=== PATIENT | female | born 1995 | race American Indian/Alaskan Native ===

== ENCOUNTER 2022-03-16 08:29 | Inpatient (IN) | payer MEDICAID ==
--- NOTE | 2022-03-16 09:24 | History and Physical Report ---
History of Present Illness Date of examination: 03/16/22 Chief complaint: labor contractions History of present illness: EDC Calculations by LMP: 03/14/2022 Past History : 3 Para: 1 # 1 Delivery date: 12/25/2016 Delivery type: Delivery [place] [facility] [place] Sex: Male weight: 7lb # 2 Delivery date: 03/2021 Delivery type: SAB Comments: Medication given Past Medical History: Reviewed and updated today: Newly diagnosed hypterthyroidism Past Surgical History: Reviewed and updated today: Negative Family History Summary: Mother - Has No Family History of Uterine Cancer - Entered On: 07/20/2021 Mother - Has No Family History of Pancreatic Cancer - Entered On: 07/20/2021 Mother - Has No Family History of Colon Cancer - Entered On: 07/20/2021 Mother - Has No Family History of Breast Cancer - Entered On: 07/20/2021 Social History: Smoking History: Patient has never smoked. Risk Factors: Smoked Tobacco Use: Never smoker Smokeless Tobacco Use: Never Passive Smoke Exposure: no HIV High Risk Behavior: low risk Exercise: no Seatbelt Use: 100 % No Dietary Counseling Reason: pn yes Alcohol Use: no Drug Use: no Past Medical History Anesthesia Complications: negative Anemia: negative Autoimmune Disorder: negative Bleeding Disorder: negative Blood Transfusions: negative Breast Disease: negative Diabetes: negative Heart Disease: negative Hypertension: negative Hepatitis/Liver Disease: negative Kidney Disease/UTI: negative Neurologic/Epilepsy/Migraines: negative Phlebitis/Varicosities: negative Psychiatric: negative Pulmonary Disease/Asthma: negative Thyroid Disease: negative Hospitalizations: negative 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 Infection History Hx of STD: none HIV Risk Eval: low risk Personal hx. of genital herpes: no Rash, Viral, or Febrile illness since last LMP? no Genetic History Congenital Heart Defect: Mom: no Deborah Disease: Mom: no Thalassemia Mom: no Neural Tube Defect Mom: no Down's Syndrome Mom: no Donny-Sachs Mom: no Sickle Cell Disease/Trait Mom: no Hemophilia Mom: no Muscular Dystrophy Mom: no Cystic Fibrosis Mom: no [place] Chorea Mom: no Mental Retardation Mom: no Fragile X Mom: no Other Genetic/Chromosomal Disorder Mom: no Child w/other defect Mom: no Enviromental Exposures Xray Exposure: no Medication, drug, or alcohol use since LMP: no Chemical/Other Exposure: no Exposure to Cat Liter: no Hx of Parvovirus (Fifth Disease): no Past History Past Medical History: other (see HPI) Past Surgical History: other (see HPI) 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) Family/Genetic History: other (see HPI) - Obstetrical History Expected Date of Delivery: 03/14/22 Actual Gestation: 40 Week(s) 2 Day(s) : 3 Para: 1 Hx # Term Pregnancies: 1 Number of Pregnancies: 0 Spontaneous Abortions: 1 Induced : 0 Number of Living Children: 1 Medications and Allergies Allergies Allergy/AdvReac Type Severity Reaction Status Date / Time No Known Allergies Allergy Unverified 03/16/22 09:03 Review of Systems All systems: negative - Vital Signs Vital signs: Vital Signs Pulse Pulse Ox 97 H 100 03/16/22 08:53 03/16/22 08:53 Temp Pulse Resp BP Pulse Ox 91 H 102/68 98 03/16/22 09:18 03/16/22 08:57 03/16/22 09:18 - Physical Exam Breasts: Positive: normal Cardiovascular: Regular rate Lungs: Positive: Normal air movement Abdomen: Positive: normal appearance, soft Genitourinary (Female): Positive: normal external genitalia, normal perenium Vulva: both: normal - Obstetrical Cervical Dilatation: 5 (BBOW) Cervical Effacement Percentage: 100 Uterine Contraction Pattern: Regular Uterine Tone Measurement Phase: Contraction Uterine Contraction Intensity: Strong/Firm Results Result Diagrams: 03/16/22 09:25 All other labs normal. Assessment and Plan 26y/o @ 40+2, presented in active labor. Admission ordered in EMR. Epidural PRN. GBS neg, anticipate . - Patient Problems (1) 40 weeks gestation of Current Visit: Yes Status: Acute
[2022-03-16 09:55] LABS: Hematocrit 29.5 % (30.3-42.9); Hemoglobin 9.2 gm/dl (10.1-14.3); Mean Corpuscular HGB Conc 31 % (30-34); Mean Corpuscular Volume 71 fl (79-97); Platelet Count 326 K/mm3 (140-440); Red Blood Count 4.14 M/mm3 (3.65-5.03)
[2022-03-16 09:56] LABS: Red Cell Distribution Width 21.2 % (13.2-15.2)
[2022-03-16] MEDS ORDERED: METHYLERGONOVINE MALEATE 0.2 MG/ML VIAL IM PRN (10:00)
[2022-03-16] MEDS ORDERED: ACETAMINOPHEN 325 MG TAB PO PRN ×2 (10:00→17:35)
[2022-03-16] MEDS ORDERED: OXYTOCIN DRIP 30 UNITS/500 ML BAG IV SCH ×2 (10:00)
[2022-03-16] MEDS ORDERED: BUTORPHANOL 2 MG/1 ML INJ IV PRN (10:00)
[2022-03-16] MEDS ORDERED: MINERAL OIL 30 ML ORAL LIQD PO PRN (10:00)
[2022-03-16] MEDS ORDERED: OXYTOCIN 10 UNIT/1 ML INJ IM PRN (10:00)
[2022-03-16] MEDS ORDERED: miSOPROStol 200 MCG TAB PR PRN (10:00)
[2022-03-16] MEDS ORDERED: fentaNYL 100 MCG/2 ML INJ IV PRN (10:00)
[2022-03-16] MEDS ORDERED: LOPERAMIDE 2 MG CAP PO PRN (10:00)
[2022-03-16] MEDS ORDERED: CARBOPROST TROMETHAMINE 250 MCG/1 ML INJ IM PRN (10:00)
[2022-03-16] MEDS ORDERED: ePHEDrine SULFATE 50 MG/1 ML INJ IV PRN ×2 (10:00→11:16)
[2022-03-16] MEDS ORDERED: ONDANSETRON 4 MG/2 ML INJ IV PRN ×2 (10:00→17:35)
[2022-03-16] MEDS ORDERED: LIDOCAINE (2%) 20 MG/1 ML VIAL 20 ML MDV INFILTRATI SCH (10:00)
[2022-03-16] MEDS ORDERED: TERBUTALINE 1 MG/1 ML INJ SUB-Q PRN (10:00)
[2022-03-16] MEDS ORDERED: NALOXONE 0.4 MG/1 ML INJ IV PRN (11:16)
[2022-03-16] MEDS: LACTATED RINGERS 1,000 ML IV SCH ×2 (11:20→13:04)
[2022-03-16] MEDS ORDERED: fentaNYL-BUPIV 2 MCG/ML-0.125% 200 MCG/100 ML BAG EPIDURAL SCH (12:00)
--- NOTE | 2022-03-16 12:17 | Anesthesia Consultation ---
Anesthesia Consult and Med Hx Date of service: 03/16/22 - Airway Anesthetic Teeth Evaluation: Good ROM Head & Neck: Adequate Mental/Hyoid Distance: Adequate Mallampati Class: Class II Intubation Access Assessment: Probably Good - Pulmonary Exam CTA: Yes - Cardiac Exam Cardiac Exam: RRR - Pre-Operative Health Status ASA Pre-Surgery Classification: ASA2 Proposed Anesthetic Plan: Epidural - Pulmonary Hx Asthma: No COPD: No Hx Pneumonia: No - Cardiovascular System Hx Hypertension: No - Central Nervous System Hx Seizures: No Hx Psychiatric Problems: No - Endocrine Hx Renal Disease: No Hx End Stage Renal Disease: No Hx Thyroid Disease: Yes (no meds) - Hematic Hx Anemia: No Hx Sickle Cell Disease: No - Other Systems Hx Alcohol Use: No
--- NOTE | 2022-03-16 12:20 | Progress Note ---
Labor Epidural - Labor Epidural Start Time: 11:25 Stop Time: 11:55 Performed by:: TAYLER MICHAELS Procedure: Patient is requesting a laboring epidural for laboring pain. Patient IDed, H&P reviewed, all questions and concerns were answered, and consent was signed. Timeout was performed at bedside. Patient in sitting position. Sterile prep and drape was performed. [3] ml of 1% lidocaine skin wheal at L[3]- L [4]. 17- gauge Tuohy epidural needle was advanced to loss of resistance with saline technique 6cm. Single dural perforation via 25 gauge spinal needle placed through the shaft of Epidural needle. Positive CSF via spinal needle. Negative CSF negative blood via Epidural needle. Epidural catheter advanced to [10] centimeters. [NEGATIVE] Aspiration [NEGATIVE] test dose. Negative Paresthesia. Sterile dressing applied. Patient tolerated procedure.
--- NOTE | 2022-03-16 12:32 | Progress Note ---
Assessment and Plan - Patient Problems (1) 40 weeks gestation of Current Visit: Yes Status: Acute Subjective - Subjective Date of service: 03/16/22 Interval history: EDC Calculations by LMP: 03/14/2022 Past History : 3 Para: 1 # 1 Delivery date: 12/25/2016 Delivery type: [place] [facility] [place] Sex: Male weight: 7lb # 2 Delivery date: 03/2021 Delivery type: SAB Comments: Medication given Past Medical History: Reviewed and updated today: Newly diagnosed hypterthyroidism Past Surgical History: Reviewed and updated today: Negative Family History Summary: Mother - Has No Family History of Uterine Cancer - Entered On: 07/20/2021 Mother - Has No Family History of Pancreatic Cancer - Entered On: 07/20/2021 Mother - Has No Family History of Colon Cancer - Entered On: 07/20/2021 Mother - Has No Family History of Breast Cancer - Entered On: 07/20/2021 Social History: Smoking History: Patient has never smoked. Risk Factors: Smoked Tobacco Use: Never smoker Smokeless Tobacco Use: Never Passive Smoke Exposure: no HIV High Risk Behavior: low risk Exercise: no Seatbelt Use: 100 % No Dietary Counseling Reason: pn yes Alcohol Use: no Drug Use: no Past Medical History Anesthesia Complications: negative Anemia: negative Autoimmune Disorder: negative Bleeding Disorder: negative Blood Transfusions: negative Breast Disease: negative Diabetes: negative Heart Disease: negative Hypertension: negative Hepatitis/Liver Disease: negative Kidney Disease/UTI: negative Neurologic/Epilepsy/Migraines: negative Phlebitis/Varicosities: negative Psychiatric: negative Pulmonary Disease/Asthma: negative Thyroid Disease: negative Hospitalizations: negative 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 Infection History Hx of STD: none HIV Risk Eval: low risk Personal hx. of genital herpes: no Rash, Viral, or Febrile illness since last LMP? no Genetic History Congenital Heart Defect: Mom: no Deborah Disease: Mom: no Thalassemia Mom: no Neural Tube Defect Mom: no Down's Syndrome Mom: no Donny-Sachs Mom: no Sickle Cell Disease/Trait Mom: no Hemophilia Mom: no Muscular Dystrophy Mom: no Cystic Fibrosis Mom: no [place] Chorea Mom: no Mental Retardation Mom: no Fragile X Mom: no Other Genetic/Chromosomal Disorder Mom: no Child w/other defect Mom: no Enviromental Exposures Xray Exposure: no Medication, drug, or alcohol use since LMP: no Chemical/Other Exposure: no Exposure to Cat Liter: no Hx of Parvovirus (Fifth Disease): no Objective - Vital Signs Vital Signs: Vital Signs - 12hr 03/16/22 03/16/22 03/16/22 08:53 08:57 08:58 Temperature Pulse Rate 97 H 115 H 96 H Respiratory Rate Blood Pressure 102/68 O2 Sat by Pulse 100 100 Oximetry O2 Sat by Pulse Oximetry [ Bilateral Throughout] 03/16/22 03/16/22 03/16/22 09:03 09:08 09:13 Temperature Pulse Rate 96 H 110 H 107 H Respiratory Rate Blood Pressure O2 Sat by Pulse 99 100 99 Oximetry O2 Sat by Pulse Oximetry [ Bilateral Throughout] 03/16/22 03/16/22 03/16/22 09:18 09:23 09:28 Temperature Pulse Rate 91 H 89 83 Respiratory Rate Blood Pressure O2 Sat by Pulse 98 100 99 Oximetry O2 Sat by Pulse Oximetry [ Bilateral Throughout] 03/16/22 03/16/22 03/16/22 09:33 09:38 09:43 Temperature Pulse Rate 89 91 H 85 Respiratory Rate Blood Pressure O2 Sat by Pulse 99 100 98 Oximetry O2 Sat by Pulse Oximetry [ Bilateral Throughout] 03/16/22 03/16/22 03/16/22 09:48 09:51 09:53 Temperature Pulse Rate 110 H 84 Respiratory Rate Blood Pressure O2 Sat by Pulse 100 100 Oximetry O2 Sat by Pulse 99 Oximetry [ Bilateral Throughout] 03/16/22 03/16/22 03/16/22 09:58 10:03 10:08 Temperature Pulse Rate 93 H 100 H 83 Respiratory Rate Blood Pressure O2 Sat by Pulse 100 99 100 Oximetry O2 Sat by Pulse Oximetry [ Bilateral Throughout] 03/16/22 03/16/22 03/16/22 10:18 10:23 10:28 Temperature Pulse Rate 97 H 94 H 105 H Respiratory Rate Blood Pressure 124/68 O2 Sat by Pulse 99 99 98 Oximetry O2 Sat by Pulse Oximetry [ Bilateral Throughout] 03/16/22 03/16/22 03/16/22 10:32 10:38 10:43 Temperature Pulse Rate 94 H 105 H 106 H Respiratory Rate Blood Pressure O2 Sat by Pulse 97 100 97 Oximetry O2 Sat by Pulse Oximetry [ Bilateral Throughout] 03/16/22 03/16/22 03/16/22 10:48 10:50 10:53 Temperature 98.4 F Pulse Rate 95 H 94 H Respiratory 18 Rate Blood Pressure O2 Sat by Pulse 99 98 Oximetry O2 Sat by Pulse Oximetry [ Bilateral Throughout] 03/16/22 03/16/22 03/16/22 10:57 11:02 11:08 Temperature Pulse Rate 104 H 99 H 116 H Respiratory Rate Blood Pressure O2 Sat by Pulse 100 100 99 Oximetry O2 Sat by Pulse Oximetry [ Bilateral Throughout] 03/16/22 03/16/22 03/16/22 11:12 11:17 11:18 Temperature Pulse Rate 101 H 112 H 103 H Respiratory Rate Blood Pressure O2 Sat by Pulse 100 88 81 L Oximetry O2 Sat by Pulse Oximetry [ Bilateral Throughout] 03/16/22 03/16/22 03/16/22 11:23 11:28 11:33 Temperature Pulse Rate 93 H 96 H 103 H Respiratory Rate Blood Pressure O2 Sat by Pulse 100 100 100 Oximetry O2 Sat by Pulse Oximetry [ Bilateral Throughout] 03/16/22 03/16/22 03/16/22 11:34 11:36 11:38 Temperature Pulse Rate 94 H 96 H 90 Respiratory Rate Blood Pressure 118/66 116/69 108/64 O2 Sat by Pulse 100 Oximetry O2 Sat by Pulse Oximetry [ Bilateral Throughout] 03/16/22 03/16/22 03/16/22 11:43 11:44 11:46 Temperature Pulse Rate 93 H 98 H 101 H Respiratory Rate Blood Pressure 117/65 112/65 O2 Sat by Pulse 100 Oximetry O2 Sat by Pulse Oximetry [ Bilateral Throughout] 03/16/22 03/16/22 03/16/22 11:48 11:50 11:52 Temperature Pulse Rate 109 H 96 H 98 H Respiratory Rate Blood Pressure 108/57 103/57 108/57 O2 Sat by Pulse 100 Oximetry O2 Sat by Pulse Oximetry [ Bilateral Throughout] 03/16/22 03/16/22 03/16/22 11:53 11:54 11:57 Temperature Pulse Rate 95 H 97 H 95 H Respiratory Rate Blood Pressure 107/67 O2 Sat by Pulse 100 89 Oximetry O2 Sat by Pulse Oximetry [ Bilateral Throughout] 03/16/22 03/16/22 03/16/22 11:58 12:00 12:02 Temperature Pulse Rate 106 H 74 74 Respiratory Rate Blood Pressure 103/63 103/61 O2 Sat by Pulse 100 Oximetry O2 Sat by Pulse Oximetry [ Bilateral Throughout] 03/16/22 03/16/22 03/16/22 12:03 12:04 12:06 Temperature Pulse Rate 78 73 78 Respiratory Rate Blood Pressure 104/63 103/62 O2 Sat by Pulse 100 Oximetry O2 Sat by Pulse Oximetry [ Bilateral Throughout] 03/16/22 03/16/22 03/16/22 12:08 12:10 12:12 Temperature Pulse Rate 76 86 85 Respiratory Rate Blood Pressure 101/62 97/59 100/59 O2 Sat by Pulse 100 Oximetry O2 Sat by Pulse Oximetry [ Bilateral Throughout] 03/16/22 03/16/22 03/16/22 12:13 12:14 12:16 Temperature Pulse Rate 78 90 92 H Respiratory Rate Blood Pressure 98/56 98/58 O2 Sat by Pulse 100 Oximetry O2 Sat by Pulse Oximetry [ Bilateral Throughout] 03/16/22 03/16/22 03/16/22 12:17 12:18 12:20 Temperature Pulse Rate 85 87 93 H Respiratory Rate Blood Pressure 100/58 95/56 O2 Sat by Pulse 100 Oximetry O2 Sat by Pulse Oximetry [ Bilateral Throughout] 03/16/22 03/16/22 03/16/22 12:22 12:23 12:24 Temperature Pulse Rate 84 79 73 Respiratory Rate Blood Pressure 102/64 105/67 O2 Sat by Pulse 100 Oximetry O2 Sat by Pulse Oximetry [ Bilateral Throughout] 03/16/22 03/16/22 12:26 12:28 Temperature Pulse Rate 87 72 Respiratory Rate Blood Pressure 98/62 99/61 O2 Sat by Pulse 100 Oximetry O2 Sat by Pulse Oximetry [ Bilateral Throughout] - Exam Narrative Exam: Pt now with epidural, comfortable. SVE 9.5/100/+1 with bulging bag, FHTs reassuring, anticipate FHR: auscultation normal Uterine Contraction Monitor Mode: External Cervical Dilatation: 9.5 Cervical Effacement Percentage: 100 station: +1 Uterine Contraction Pattern: Regular - Labs Labs: Abnormal Labs 03/16/22 09:25 Hgb 9.2 L Hct 29.5 L MCV 71 L MCH 22 L RDW 21.2 H Laboratory Results - last 24 hr 03/16/22 03/16/22 03/16/22 09:25 09:25 10:53 WBC 10.0 RBC 4.14 Hgb 9.2 L Hct 29.5 L MCV 71 L MCH 22 L MCHC 31 RDW 21.2 H Plt Count 326 SARS-CoV-2 (PCR) Negative Blood Type O POSITIVE Antibody Screen Negative
--- NOTE | 2022-03-16 17:27 | Procedure Note ---
OB Delivery Note - Delivery Date of Delivery: 03/16/22 Surgeon: CARL KAPLAN (Tabitha Thorne, Lisa-ARMANDO) Estimated blood loss: 100cc - Vaginal Delivery presentation: vertex Delivery position: OA Intrapartum events: none Delivery induction: none Delivery augmentation: rupture of membranes Delivery monitor: external FHT Route of delivery: Delivery placenta: spontaneous Delivery cord: nuchal cord, 3 umbilical vessels Episiotomy: none Delivery laceration: 1st degree Anesthesia: epidural Delivery comments: live male born via with 8/9 apgars, nuchal cord x3 somersaulted through. Infant placed to moms chest, cord clamped and cut after pulse cessation. complete placenta delivered spontaneously and intact. 1st degree laceration and bilateral periurethral tears with hemostasis. Reviewed suturing with mother, she requested to allow natural healing, no repair. All counts correct, mother and baby left and stable LDRP condition. - Infant A at 1 minute: 8 at 5 minutes: 9 Infant Gender: Male (6lb 8oz, 2960gm)
[2022-03-16] MEDS ORDERED: MAGNESIUM HYDROXIDE (MOM) ORAL LIQD UDC PO PRN (17:35)
[2022-03-16] MEDS ORDERED: PROMETHAZINE 25 MG RECT SUPP PR PRN (17:35)
[2022-03-16] MEDS ORDERED: PROMETHAZINE 25 MG TAB PO PRN (17:35)
[2022-03-16] MEDS ORDERED: BENZOCAINE/MENTHOL 20/0.5% TOP SPRAY 56 GM TP PRN (17:35)
[2022-03-16] MEDS ORDERED: diphenhydrAMINE 25 MG CAP PO PRN (17:35)
[2022-03-16] MEDS ORDERED: LANOLIN/ZINC/DIMETHICONE (LANSINOH) 7 GM TP PRN (17:35)
[2022-03-16] MEDS ORDERED: HYDROcodone/ACETAMINOPHEN 5-325 MG TAB PO PRN (17:35)
[2022-03-16] MEDS ORDERED: WITCH HAZEL/ GLYCERIN PAD TP PRN (17:35)
[2022-03-16] MEDS: DOCUSATE SODIUM 100 MG CAP PO SCH (22:16)
[2022-03-17] MEDS: IBUPROFEN 800 MG TAB PO SCH ×4 (00:35→18:17)
--- NOTE | 2022-03-17 07:46 | Progress Note ---
Assessment and Plan A: 26 y.o. s/p . - Patient Problems (1) (normal spontaneous vaginal delivery) Current Visit: Yes Status: Acute Plan to address problem: Continue with care. Anemia from delivery: - Iron supplement ordered. - Admitting H/H 9.2/29.5. - Awaiting post delivery H/H. Anticipate discharge home on 03/17/2022 Subjective - Subjective Date of service: 03/17/22 Principal diagnosis: s/p Interval history: Pt doing well. Not ready for discharge today. Patient reports: appetite normal, voiding normally, pain well controlled, ambulating normally : doing well Objective - Vital Signs Latest vital signs: Vital Signs Temp Pulse Resp BP BP Pulse Ox Pulse Ox 03/17/22 06:31 18 03/17/22 05:31 18 03/17/22 01:35 18 03/17/22 01:32 98.0 F 88 20 95/66 98 03/17/22 00:35 20 03/16/22 19:15 100 03/16/22 18:33 89 18 122/82 100 03/16/22 18:03 93 H 100 03/16/22 17:59 88 136/80 03/16/22 17:58 88 100 03/16/22 17:53 96 H 100 03/16/22 17:48 92 H 100 03/16/22 17:44 85 108/73 03/16/22 17:43 89 100 03/16/22 17:38 94 H 100 03/16/22 17:33 88 100 03/16/22 17:28 94 H 116/68 100 03/16/22 17:23 98 H 100 03/16/22 17:22 97.9 F 101 H 16 104/59 100 03/16/22 17:18 95 H 100 03/16/22 17:13 98 H 104/59 100 03/16/22 17:08 93 H 95 03/16/22 16:58 100 H 109/59 03/16/22 16:52 125 H 100 03/16/22 16:47 136 H 100 03/16/22 16:44 116 H 103/62 03/16/22 16:42 110 H 100 03/16/22 16:37 138 H 100 03/16/22 16:32 143 H 100 03/16/22 16:27 126 H 100 08/24/22 16:22 119 H 100 03/16/22 16:17 147 H 100 03/16/22 16:14 133 H 99/55 03/16/22 16:12 117 H 100 03/16/22 16:11 153 H 76 L 03/16/22 16:07 152 H 100 03/16/22 16:02 127 H 100 03/16/22 15:57 119 H 100 03/16/22 15:52 138 H 100 03/16/22 15:47 128 H 100 03/16/22 15:43 125 H 93/58 03/16/22 15:42 94 H 100 03/16/22 15:41 110 H 90 03/16/22 15:37 124 H 100 03/16/22 15:32 111 H 100 03/16/22 15:29 130 H 86/53 03/16/22 15:27 104 H 100 03/16/22 15:22 91 H 100 03/16/22 15:17 96 H 99 03/16/22 15:14 96 H 112/74 03/16/22 15:13 82 94 03/16/22 15:12 81 92 03/16/22 15:07 101 H 100 03/16/22 15:02 98 H 100 03/16/22 14:58 122 H 89/57 03/16/22 14:57 108 H 99 03/16/22 14:52 99 H 100 03/16/22 14:47 83 100 03/16/22 14:44 100 H 103/65 03/16/22 14:42 95 H 100 03/16/22 14:37 93 H 100 03/16/22 14:32 84 100 03/16/22 14:29 77 112/69 90 03/16/22 14:27 78 100 03/16/22 14:22 95 H 99 03/16/22 14:17 104 H 98 03/16/22 14:14 104 H 105/68 03/16/22 14:12 95 H 100 03/16/22 14:07 91 H 96 03/16/22 14:02 89 98 03/16/22 13:59 89 105/64 03/16/22 13:57 101 H 100 03/16/22 13:53 100 H 99 03/16/22 13:48 97.5 F L 79 16 117/56 100 03/16/22 13:44 82 117/56 03/16/22 13:43 94 H 100 03/16/22 13:37 77 99 03/16/22 13:35 87 93 03/16/22 13:32 100 H 100 03/16/22 13:28 90 123/75 100 03/16/22 13:23 72 122/75 100 03/16/22 13:18 95 H 144/76 100 03/16/22 13:13 82 100 03/16/22 13:12 101 H 133/86 03/16/22 13:08 73 123/76 03/16/22 13:07 80 100 03/16/22 13:02 103 H 122/86 100 03/16/22 12:58 76 100 03/16/22 12:56 70 102/68 03/16/22 12:52 79 99 03/16/22 12:50 78 99/62 03/16/22 12:48 73 99 03/16/22 12:43 70 100 03/16/22 12:38 86 99 03/16/22 12:34 70 99/63 03/16/22 12:32 76 99/62 100 03/16/22 12:30 73 99/61 03/16/22 12:28 72 99/61 100 03/16/22 12:26 87 98/62 03/16/22 12:24 73 105/67 03/16/22 12:23 79 100 03/16/22 12:22 84 102/64 03/16/22 12:20 93 H 95/56 03/16/22 12:18 87 100/58 03/16/22 12:17 85 100 03/16/22 12:16 92 H 98/58 03/16/22 12:14 90 98/56 03/16/22 12:13 78 100 03/16/22 12:12 85 100/59 03/16/22 12:10 86 97/59 03/16/22 12:08 76 101/62 100 03/16/22 12:06 78 103/62 03/16/22 12:04 73 104/63 03/16/22 12:03 78 100 03/16/22 12:02 74 103/61 03/16/22 12:00 74 103/63 03/16/22 11:58 106 H 100 03/16/22 11:57 95 H 107/67 03/16/22 11:54 97 H 89 03/16/22 11:53 95 H 100 03/16/22 11:52 98 H 108/57 03/16/22 11:50 96 H 103/57 03/16/22 11:48 109 H 108/57 100 03/16/22 11:46 101 H 112/65 03/16/22 11:44 98 H 117/65 03/16/22 11:43 93 H 100 03/16/22 11:38 90 108/64 100 03/16/22 11:36 96 H 116/69 03/16/22 11:34 94 H 118/66 03/16/22 11:33 103 H 100 03/16/22 11:28 96 H 100 03/16/22 11:23 93 H 100 03/16/22 11:18 103 H 81 L 03/16/22 11:17 112 H 88 03/16/22 11:12 101 H 100 03/16/22 11:08 116 H 99 03/16/22 11:02 99 H 100 03/16/22 10:57 104 H 100 03/16/22 10:53 94 H 98 03/16/22 10:50 98.4 F 18 03/16/22 10:48 95 H 99 03/16/22 10:43 106 H 97 03/16/22 10:38 105 H 100 03/16/22 10:32 94 H 97 03/16/22 10:28 105 H 98 03/16/22 10:23 94 H 99 03/16/22 10:18 97 H 124/68 99 03/16/22 10:08 83 100 03/16/22 10:03 100 H 99 03/16/22 09:58 93 H 100 03/16/22 09:53 84 100 03/16/22 09:51 99 03/16/22 09:48 110 H 100 03/16/22 09:43 85 98 03/16/22 09:38 91 H 100 03/16/22 09:33 89 99 03/16/22 09:28 83 99 03/16/22 09:23 89 100 03/16/22 09:18 91 H 98 03/16/22 09:13 107 H 99 03/16/22 09:08 110 H 100 03/16/22 09:03 96 H 99 03/16/22 08:58 96 H 100 03/16/22 08:57 115 H 102/68 03/16/22 08:53 97 H 100 Intake and Output 03/16/22 03/17/22 03/17/22 22:59 06:59 14:59 Intake Total 360 360 Output Total 1500 Balance -1140 360 Intake: Oral 120 Intake, Free Water 360 240 Output: Urine 1500 Uretheral (Cavazos) 400 Void 1100 Other: Total, Intake Amount 120 Total, Output Amount 300 # Voids Void 2 1 Estimated Blood Loss 100 - Exam Narrative Exam: Admitting H/H 9.2/29.5. Cardiovascular: Present: Regular rate Lungs: Present: Normal air movement Abdomen: Present: normal appearance, soft Uterus: Present: normal Extremities: Present: normal - Labs Labs: Abnormal lab results 03/16/22 Range/Units 09:25 Hgb 9.2 L (10.1-14.3) gm/dl Hct 29.5 L (30.3-42.9) % MCV 71 L (79-97) fl MCH 22 L (28-32) pg RDW 21.2 H (13.2-15.2) %
[2022-03-17] MEDS ORDERED: PRENATAL VIT27-FE FUMARATE-FOLIC ACID VIT TAB PO SCH (10:00)
[2022-03-17] MEDS ORDERED: FERROUS SULFATE 325 MG TAB PO SCH (10:00)
[2022-03-17] MEDS: DOCUSATE SODIUM 100 MG CAP PO SCH ×2 (10:05→21:01)
[2022-03-17 10:48] LABS: Hematocrit 27.3 % (30.3-42.9); Hemoglobin 8.2 gm/dl (10.1-14.3)
--- NOTE | 2022-03-17 16:02 | Post Anesthesia Evaluation ---
- Post Anesthesia Evaluation Patient Participated: Yes Airway Patent: Yes Stable Respiratory Function: Yes Nausea/Vomiting: No Temp > 96.8F: Yes Pain Manageable: Yes Adequeate Hydration: Yes Anesthesia Complications: No Block Receding Appropriately: Yes Patient on Ventilator: No
[2022-03-18] MEDS: IBUPROFEN 800 MG TAB PO SCH (00:30)
--- NOTE | 2022-03-18 08:23 | Discharge Summary ---
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 [CONS] Routine Reason For Exam: assistance with , SNS Primary care physician: IRINEO ZAVALETA Hospitalization Reason for admission: Labor Condition: Good Pertinent studies: post delivery H&H 8.2/27.3, asymptomatic anemia d/t acute blood loss Procedures: Hospital course: uncomplicated and course Disposition: 01 HOME / SELF CARE / HOMELESS Final Discharge Diagnosis (Prints w/discharge instructions): normal vaginal Time spent for discharge: 20 - Discharge Diagnoses (1) (normal spontaneous vaginal delivery) Status: Acute Core Measure Documentation - Palliative Care Palliative Care/ Comfort Measures: Not Applicable - Core Measures Any of the following diagnoses?: none Exam - Constitutional Vitals: Temp Pulse Resp BP Pulse Ox 98.4 F 77 16 114/78 98 03/18/22 00:28 03/18/22 00:28 03/18/22 00:03/18/22 00:03/17/22 22:00 General appearance: Present: no acute distress, well-nourished - EENT Eyes: Present: PERRL ENT: hearing intact, clear oral mucosa - Neck Neck: Present: supple, normal ROM - Respiratory Respiratory effort: normal Respiratory: bilateral: CTA - Cardiovascular Rhythm: regular Heart Sounds: Absent: rub, click - Extremities Extremities: No edema Peripheral Pulses: within normal limits - Abdominal General gastrointestinal: Present: soft, non-tender, non-distended, normal bowel sounds Female genitourinary: Present: normal - Integumentary Integumentary: Present: clear, warm, dry - Musculoskeletal Musculoskeletal: gait normal, strength equal bilaterally - Psychiatric Psychiatric: appropriate mood/affect, intact judgment & insight - Neurologic Neurologic: CNII-XII intact, moves all extremities - Additional findings Additional findings: lochia scant, fundus firm Plan Activity: no restrictions Diet: regular Follow up with: IRINEO ZAVALETA MD [Primary Care Provider] - 7 Days (Congratulations! Please call [phone] to schedule your son's circumcision in 1 week and your visit in 6 weeks. Bring EMLA cream to your son's appointment and wait for further teaching. Call with any questions or complaints. ) Prescriptions: Docusate Sodium [Colace] 100 mg PO BID PRN #60 capsule PRN Reason: Constipation Lidocain2.5%/Prilocai2.5% [Emla] 1 applic TP ONCE #1 tube Ferrous Sulfate [Feosol 325 MG tab] 325 mg PO QDAY #30 tablet Ibuprofen [Motrin] 800 mg PO Q8HR PRN #30 tablet PRN Reason: Pain, Moderate (4-6)
[2022-03-18 16:54] VITALS: BP 99/69
== END 2022-03-18 16:44 | disposition home or self-care (01) | DRG 775 ==
LOC: APU 08:29 → TRG 08:29 → LD 09:24 → TRG 17:31 → OB 18:23
PROVIDERS: ADMIT Obstetrics & Gynecology; ATTEND Obstetrics & Gynecology
PROC: 10E0XZZ Delivery of Products of Conception, External Approach (ICD-10-PCS; principal; 2022-03-16)
PROC: 3E0R3BZ Introduction of Anesthetic Agent into Spinal Canal, Percutaneous Approach (ICD-10-PCS; 2022-03-16)
PROC: 00HU33Z Insertion of Infusion Device into Spinal Canal, Percutaneous Approach (ICD-10-PCS; 2022-03-16)
DX: O69.81X0 Labor and delivery complicated by cord around neck, without compression, not applicable or unspecified (principal); Z3A.40 40 weeks gestation of pregnancy; Z37.0 Single live birth; O70.0 First degree perineal laceration during delivery; Z20.822 Contact with and (suspected) exposure to COVID-19; O90.81 Anemia of the puerperium; D62 Acute posthemorrhagic anemia
CPT/HCPCS: 36415; 85014; 85018; 85027; 86592; 86850; 86900; 86901; G0378; J3490; J2590; J7120; U0003